=== PATIENT | male | born 1935 | race Caucasian/White ===

== ENCOUNTER 2018-01-11 18:05 | Inpatient (IN) ==
[2018-01-11] MEDS ORDERED: methylPREDNISolone 125 MG/2 ML VIAL IVP ONE (18:25)
[2018-01-11] MEDS ORDERED: Ipratropium/Albuterol Neb 3 ML IH ONE ×2 (18:25→18:57)
--- NOTE | 2018-01-11 18:30 | Emergency Department Note ---
Disposition Clinical Impression: Acute exacerbation of chronic obstructive airways disease Community acquired pneumonia Qualifiers: Laterality: unspecified laterality Qualified Code(s): J18.9 - Pneumonia, unspecified organism Disposition: Admitted As Inpatient Condition: Good Referrals: Prisca Perez CNP [Primary Care Provider] - Forms: ED Satisfaction Letter Time of Disposition: 19:57 SOB [facility] - General Chief Complaint: ED Shortness of Breath/Dyspnea Stated Complaint: VINCENZO Time Seen by Provider: 01/11/18 18:22 Source: patient Mode of arrival: ambulatory Limitations: no limitations Nursing Notes Reviewed: Yes Vital Signs Reviewed: Yes - History of Present Illness Patient presents to the ED with the chief complaint of cough and shortness of breath. Onset of the cough was about 4 days ago, but is getting worse. It is intermittently productive, but mainly sounding like rattling in his chest. No fevers or chills. No chest pain or tightness. He has been short of breath, much more so today than usual. No formally diagnosed history of COPD, but family states he does have known lung problems. He also has extensive " vascular disease." Has had stents and bypasses as well as carotid endarterectomies and stents. He is not having any headache, changes in vision or syncopal symptoms. He states he feels okay. Overall, just weak and tired from the cough - Related Data Previous Rx's Medication Instructions Recorded Naproxen [EC-Naprosyn] 375 mg PO DAILY 5 Days tablet. 08/23/16 cephALEXin [Keflex] 500 mg PO BID 7 Days capsule 08/23/16 Allergies Allergy/AdvReac Type Severity Reaction Status Date / Time No Known Allergies Allergy Verified 01/11/18 18:11 Review of Systems: As reviewed in the HPI. All other systems reviewed are negative or normal. Past Medical History - Past Medical History Attestation: Yes The following information was validated with the patient. Source: patient Medical history: Reports: coronary artery disease, diabetes, hypertension Psychiatric history: Reports: no psych history - Social History Smoking Status: Former smoker Smokeless Tobacco Status: No Alcohol use: Reports: none Drug use: Reports: none Physical Exam - General Limitations: no limitations General appearance: alert, in no apparent distress - Head Head exam: atraumatic, normocephalic, normal inspection - Eye Eye exam: Present: normal appearance, PERRL, EOMI - ENT ENT exam: normal exam, normal oropharynx, mucous membranes moist - Chest Chest inspection: Present: normal inspection, symmetric chest wall rise - Respiratory Respiratory exam: Present: wheezes (Course throughout, rhonchi right lower lobe) . Absent: normal lung sounds bilaterally, respiratory distress, accessory muscle use - Cardiovascular Cardiovascular exam: Present: regular rate, normal rhythm, systolic murmur. Absent: normal heart sounds - Abdominal Exam Abdominal exam: Present: soft, Non-Tender. Absent: tenderness, distention, guarding, rebound, rigidity - Extremities Exam Extremities exam: Present: normal inspection, full ROM. Absent: tenderness, pedal edema - Neurological Exam Neurological exam: Present: alert, oriented X3 - Psychiatric Psychiatric exam: Present: normal affect, normal mood - Skin Skin exam: Present: warm, dry, intact, normal color Course Course Narrative: Afebrile male presenting with pneumonia versus COPD exacerbation. Wheezes and rhonchi. Sepsis labs ordered as well as breathing treatments. Patient overall looks very well, was not in any acute distress at this time. - Reevaluation(s) Reevaluation #1: Chest x-ray shows bilateral pneumonia, worse in the left lung. He is feeling better after breathing treatments, but is still mildly hypoxic. We will admit to the hospital service for pneumonia and COPD exacerbation. Time: 19:55 Reevaluation #2: Accepted for admission by the hospitalist. Time: 20:38 Vital Signs Temperature 98.5 F 01/11/18 18:11 Pulse Rate 87 01/11/18 18:11 Respiratory Rate 20 01/11/18 18:11 Blood Pressure 116/68 01/11/18 18:11 O2 Sat by Pulse Oximetry 93 01/11/18 18:11 Temperature 98.5 F 01/11/18 18:11 Pulse Rate 100 01/11/18 20:21 Respiratory Rate 20 01/11/18 20:21 Blood Pressure 127/85 01/11/18 20:21 O2 Sat by Pulse Oximetry 100 01/11/18 20:21 Oxygen Delivery Oxygen Delivery Aerosol Mask Shortness of Breath/Dyspnea - Medical Records Medical records reviewed: Yes I reviewed the patient's medical records. - Lab Data Lab results reviewed: Yes I reviewed the patient's lab results. Result diagrams: 01/11/18 18:40 01/11/18 18:40 Lab Results 0401/11/18 01/11/18 Range/Units 18:40 18:40 18:40 WBC 12.6 H (4.3-11.1) K/mcL RBC 4.77 (4.19-5.50) M/mcL Hgb 14.1 (12.9-16.9) g/dL Hct 42.7 (37.5-50.1) % MCV 89.5 (83.0-100.0) fL MCH 29.6 (28.0-33.3) pg MCHC 33.0 (31.6-35.5) g/dL RDW 13.0 (11.5-14.5) % Plt Count 178 (140-400) K/mcL MPV 10.5 (9.4-12.4) fL Immature Gran % 0.7 (0-4) % Seg Neutrophils % 77.1 % Lymphocytes % 8.2 % Monocytes % 13.6 % Eosinophils % 0.2 % Basophils % 0.2 % Neutrophils # 9.7 H (1.6-8.9) K/mcL Lymphocytes # 1.0 (0.6-4.6) K/mcL Monocytes # 1.7 H (0.0-1.3) K/mcL Eosinophils # 0.0 (0.0-0.6) K/mcL Basophils # 0.0 (0.0-0.2) K/mcL Sodium 127 L (136-145) mEq/L Potassium 5.1 (3.5-5.1) mEq/L Chloride 95 L (98-107) mEq/L Carbon Dioxide 23 (23-29) mEq/L BUN 51 H (8-23) mg/dL Creatinine 2.26 H (0.70-1.30) mg/dL Est GFR ( Amer) 34 L (> 60) Est GFR (Non-Af Amer) 28 L (> 60) BUN/Creatinine Ratio 23 (6-26) Glucose 191 H (70-105) mg/dL Calculated Osmolality 283 (280-300) Lactic Acid 1.6 (0.5-2.2) mmol/L Calcium 8.6 (8.6-10.3) mg/dL Troponin I 0.03 (< 0.04) ng/mL B-Natriuretic Peptide (Less than 100) pg/mL 04/28/18 Range/Units 18:40 WBC (4.3-11.1) K/mcL RBC (4.19-5.50) M/mcL Hgb (12.9-16.9) g/dL Hct (37.5-50.1) % MCV (83.0-100.0) fL MCH (28.0-33.3) pg MCHC (31.6-35.5) g/dL RDW (11.5-14.5) % Plt Count (140-400) K/mcL MPV (9.4-12.4) fL Immature Gran % (0-4) % Seg Neutrophils % % Lymphocytes % % Monocytes % % Eosinophils % % Basophils % % Neutrophils # (1.6-8.9) K/mcL Lymphocytes # (0.6-4.6) K/mcL Monocytes # (0.0-1.3) K/mcL Eosinophils # (0.0-0.6) K/mcL Basophils # (0.0-0.2) K/mcL Sodium (136-145) mEq/L Potassium (3.5-5.1) mEq/L Chloride (98-107) mEq/L Carbon Dioxide (23-29) mEq/L BUN (8-23) mg/dL Creatinine (0.70-1.30) mg/dL Est GFR ( Amer) (> 60) Est GFR (Non-Af Amer) (> 60) BUN/Creatinine Ratio (6-26) Glucose (70-105) mg/dL Calculated Osmolality (280-300) Lactic Acid (0.5-2.2) mmol/L Calcium (8.6-10.3) mg/dL Troponin I (< 0.04) ng/mL B-Natriuretic Peptide 176 H (Less than 100) pg/mL - Radiology Data Radiology results reviewed: Yes I reviewed the patient's radiology results. - EKG Data EKG attestation: Yes I reviewed and interpreted this EKG. EKG results narrative: Sinus rhythm, rate 87, DIEGO 135, QRS 94, QTc 390, L axis deviation, non-specific inferior EKG changes but no acute ischemic changes
[2018-01-11 18:50] LABS: Basophils % 0.2 %; Eosinophils % 0.2 %; Hematocrit 42.7 % (37.5-50.1); Hemoglobin 14.1 g/dL (12.9-16.9); Immature Granulocytes % 0.7 % (0-4); Lymphocytes % 8.2 %; Mean Corpuscular Hemoglobin 29.6 pg (28.0-33.3); Mean Corpuscular Volume 89.5 fL (83.0-100.0); Mean Platelet Volume 10.5 fL (9.4-12.4); Monocytes # 1.7 K/mcL (0.0-1.3); Monocytes % 13.6 %; Neutrophils # 9.7 K/mcL (1.6-8.9); Platelet Count 178 K/mcL (140-400); Red Blood Count 4.77 M/mcL (4.19-5.50); Segmented Neutrophils % 77.1 %
[2018-01-11 19:12] LABS: Calcium 8.6 mg/dL (8.6-10.3); Potassium 5.1 mEq/L (3.5-5.1); Troponin I 0.03 ng/mL (< 0.04)
[2018-01-11] MEDS ORDERED: cefTRIAXone 1,000 MG in Water for inj. (sterile) 20 ML 10 ML IVP ONE (19:51)
[2018-01-11] MEDS ORDERED: Azithromycin 500 MG in D5% in Water 250 ML IVPB ONE (19:51)
[2018-01-11] MEDS ORDERED: Albuterol Neb 1.25 MG/3 ML VIAL IH ONE (19:57)
[2018-01-11] MEDS ORDERED: 0.9 % Sodium Chloride 1,000 ML IVC ONE ×2 (20:31)
--- NOTE | 2018-01-11 21:03 | Internal Med History&Physical ---
Date of Encounter: 01/11/18 Time of Encounter: 20:59 Internal Medicine - H&P: HPI Chief complaint: cough Admitted From: Emergency Dept Plans for Post Hospital Care: Home History of present illness: Mr. Hernandez is a 82 year old male with history of CAD ??stent in the 80s, DM, HTN , PVD, CKD III, who presents with a cough and shortness of breath for 4 days or so. Cough is productive at times. Subjective fevers. Been feeling weak progressively and today was his worst as family members could not get him up. On presentation to the ED, he was hemodynamically stable. Tachycardic at times. Work up showed leukocytosis. CXR with infiltrates. Given nebs, IV steroids, IVF , Zithromax/Rocephin in the ED and we were called to admit. Denies headache, blurry vision, chest pain, abdominal pain, nausea, vomiting, diarrhea, constipation, urinary symptoms, or neurological symptoms. Past Med Surg Social Fam HX - Past Medical History Medical history: coronary artery disease, diabetes, hypertension Psychiatric history: no psych history - Social History Smoking Status: Former smoker Smokeless Tobacco Status: No Alcohol use: none Drug use: none Internal Medicine - H&P: Meds Naproxen [EC-Naprosyn] 375 mg PO DAILY 5 Days tablet. 08/23/16 [Rx] cephALEXin [Keflex] 500 mg PO BID 7 Days capsule 08/23/16 [Rx] 3 Allergy/AdvReac Type Severity Reaction Status Date / Time No Known Allergies Allergy Verified 01/11/18 18:11 All Systems PM: A 10-system review of systems was performed and is negative for pertinent findings except as documented above in the HPI. Review of systems: All systems reviewed are negative except for as mentioned above - Constitutional Vitals: Temp Pulse Resp BP Pulse Ox 98.5 F 100 20 127/85 100 01/11/18 18:11 01/11/18 20:21 01/11/18 20:21 01/11/18 20:21 01/11/18 20:21 Exam: GEN: NAD HEENT: AT, NC, No cyanosis, oral mucosa is moist, No JVD Lymphatics: No lymphadenoapthy Eyes: Extrocular muscles intact, anicteric CVS:RRR. S1, S2, No m/r/g RESP: CTAB ABD: Soft, NT, ND, +BS EXT: No edema, No rashes, 2+ DP NEURO: Nonfocal, CN II-XII intact, No focal motor or sensory deficits Psych: Cooperative, Not anxious or depressed Internal Med - H&P Results - Labs CBC & Chem 7: 01/11/18 18:40 01/11/18 18:40 - Assessment and plan (1) Community acquired pneumonia Current Visit: Yes Status: Acute Assessment and plan: We will treat with Rocephin and Zithromax for community-acquired pneumonia. Check urine strep and Legionella. Check sputum culture. Blood cultures were not collected in the ED and the patient has received antibiotics. We will send for blood cultures if he spikes a fever. Nebs. IV fluids. Qualifiers: Laterality: unspecified laterality Qualified Code(s): J18.9 - Pneumonia, unspecified organism (2) Diabetes mellitus Current Visit: Yes Status: Acute Assessment and plan: Insulin sliding scale. Accu-Cheks. Qualifiers: Diabetes mellitus type: type 2 Diabetes mellitus care home insulin use: without clinical safety specialist use Diabetes mellitus complication status: with kidney complications Diabetes mellitus complication detail: with chronic kidney disease Chronic kidney disease stage: stage 3 (moderate) Qualified Code(s): E11.22 - Type 2 diabetes mellitus with diabetic chronic kidney disease; N18.3 - Chronic kidney disease, stage 3 (moderate); N18.3 - Chronic kidney disease, stage 3 (moderate) (3) CKD (chronic kidney disease) stage 3, GFR 30-59 ml/min Current Visit: Yes Status: Acute Assessment and plan: Stable around baseline. We will monitor. (4) DVT prophylaxis Current Visit: Yes Status: Acute Assessment and plan: Heparin subcutaneous - Time Spent With Patient Total time spent is greater than 50% in coordination of care (as documented) at patient's floor/unit and/or counseling patient:
[2018-01-11] MEDS ORDERED: Naloxone 0.4 MG/ML INJ IVP PRN (21:10)
[2018-01-11] MEDS ORDERED: Acetaminophen 325 MG TABLET PO PRN (21:10)
[2018-01-11] MEDS ORDERED: Dextrose Gel 15 GM/37.5 ML TUBE PO PRN ×2 (21:17)
[2018-01-11] MEDS ORDERED: *HR* Dextrose 50 % in Water (Syg) 50 ML SYRINGE IVP PRN (21:17)
[2018-01-11] MEDS ORDERED: D5% in Water 1,000 ML IVC PRN (21:17)
[2018-01-11] MEDS ORDERED: Heparin 25,000 UNIT/500 ML D5W 25,000 UNIT/500 ML BAG IVC SCH (21:45)
[2018-01-11] MEDS ORDERED: *HR* Heparin 5,000 UNIT/ML VIAL IVP ONE (21:45)
[2018-01-11] MEDS ORDERED: *HR* Heparin 5,000 UNIT/ML VIAL SQ SCH (22:00)
[2018-01-11] MEDS: Nitroglycerin 0.4 MG TAB.SUBL SL PRN ×3 (22:01→22:11)
--- NOTE | 2018-01-11 22:06 | Event Note ---
Date of Encounter: 01/12/18 Time of Encounter: 22:05 Patient started having chest pain prior to transfer to the floor and was tachycardic. The ED staff were aware of this and an EKG was ordered showing possible slight ST elevation in the inferior leads with ST depressions in lateral leads. Dr. Lawrence was made aware and asked for the patient to be started on heparin drip and to have serial EKGs. Later on the patient complained of jaw pain and an EKG showed worsening of ST depressions. Dr. Lawrence is in the construction laborer for a STEMI case currently and will likely take the patient for cath later tonight. Patient was re-evaluated by me and he stated no chest pain. Remains tachy in the 120s. Given ASA and nitro.
[2018-01-11 22:12] LABS: INR 1.4; Prothrombin Time 14.7 Seconds (9.4-12.1)
[2018-01-11 22:14] LABS: Activated Partial Thrombo Time 32.2 Seconds (26.0-36.0)
--- NOTE | 2018-01-11 22:59 | Emergency Department Note ---
Disposition Clinical Impression: Acute exacerbation of chronic obstructive airways disease Community acquired pneumonia Qualifiers: Laterality: unspecified laterality Qualified Code(s): J18.9 - Pneumonia, unspecified organism Disposition: Admitted As Inpatient Condition: Good General Adult HPI - General Chief complaint: ED Shortness of Breath/Dyspnea Stated complaint: VINCENZO Time Seen by Provider: 01/11/18 18:22 Source: patient Mode of arrival: ambulatory Limitations: no limitations - History of Present Illness Pain Scale: 2 - Related Data Previous Rx's Medication Instructions Recorded Naproxen [EC-Naprosyn] 375 mg PO DAILY 5 Days tablet. 08/23/16 cephALEXin [Keflex] 500 mg PO BID 7 Days capsule 08/23/16 Allergies Allergy/AdvReac Type Severity Reaction Status Date / Time No Known Allergies Allergy Verified 01/11/18 18:11 Past Medical History - Past Medical History Medical history: Reports: coronary artery disease, diabetes, hypertension Psychiatric history: Reports: no psych history - Social History Smoking Status: Former smoker Smokeless Tobacco Status: No Alcohol use: Reports: none Drug use: Reports: none Physical Exam - General Limitations: no limitations General appearance: alert, in no apparent distress Course Vital Signs Temperature 98.5 F 01/11/18 18:11 Pulse Rate 87 01/11/18 18:11 Respiratory Rate 20 01/11/18 18:11 Blood Pressure 116/68 01/11/18 18:11 O2 Sat by Pulse Oximetry 93 01/11/18 18:11 Temperature 98.5 F 01/11/18 18:11 Pulse Rate 109 01/11/18 22:43 Respiratory Rate 20 01/11/18 22:43 Blood Pressure 90/50 01/11/18 22:43 O2 Sat by Pulse Oximetry 98 01/11/18 22:43 Oxygen Delivery Oxygen Delivery Nasal Cannula Medical Decision Making - Lab Data Result diagrams: 01/11/18 18:40 01/11/18 18:40 Lab Results 01/11/18 01/11/18 01/11/18 Range/Units 18:40 18:40 18:40 WBC 12.6 H (4.3-11.1) K/mcL RBC 4.77 (4.19-5.50) M/mcL Hgb 14.1 (12.9-16.9) g/dL Hct 42.7 (37.5-50.1) % MCV 89.5 (83.0-100.0) fL MCH 29.6 (28.0-33.3) pg MCHC 33.0 (31.6-35.5) g/dL RDW 13.0 (11.5-14.5) % Plt Count 178 (140-400) K/mcL MPV 10.5 (9.4-12.4) fL Immature Gran % 0.7 (0-4) % Seg Neutrophils % 77.1 % Lymphocytes % 8.2 % Monocytes % 13.6 % Eosinophils % 0.2 % Basophils % 0.2 % Neutrophils # 9.7 H (1.6-8.9) K/mcL Lymphocytes # 1.0 (0.6-4.6) K/mcL Monocytes # 1.7 H (0.0-1.3) K/mcL Eosinophils # 0.0 (0.0-0.6) K/mcL Basophils # 0.0 (0.0-0.2) K/mcL Sodium 127 L (136-145) mEq/L Potassium 5.1 (3.5-5.1) mEq/L Chloride 95 L (98-107) mEq/L Carbon Dioxide 23 (23-29) mEq/L BUN 51 H (8-23) mg/dL Creatinine 2.26 H (0.70-1.30) mg/dL Est GFR ( Amer) 34 L (> 60) Est GFR (Non-Af Amer) 28 L (> 60) BUN/Creatinine Ratio 23 (6-26) Glucose 191 H (70-105) mg/dL Calculated Osmolality 283 (280-300) Lactic Acid 1.6 (0.5-2.2) mmol/L Calcium 8.6 (8.6-10.3) mg/dL Troponin I 0.03 (< 0.04) ng/mL B-Natriuretic Peptide (Less than 100) pg/mL 01/11/18 Range/Units 18:40 WBC (4.3-11.1) K/mcL RBC (4.19-5.50) M/mcL Hgb (12.9-16.9) g/dL Hct (37.5-50.1) % MCV (83.0-100.0) fL MCH (28.0-33.3) pg MCHC (31.6-35.5) g/dL RDW (11.5-14.5) % Plt Count (140-400) K/mcL MPV (9.4-12.4) fL Immature Gran % (0-4) % Seg Neutrophils % % Lymphocytes % % Monocytes % % Eosinophils % % Basophils % % Neutrophils # (1.6-8.9) K/mcL Lymphocytes # (0.6-4.6) K/mcL Monocytes # (0.0-1.3) K/mcL Eosinophils # (0.0-0.6) K/mcL Basophils # (0.0-0.2) K/mcL Sodium (136-145) mEq/L Potassium (3.5-5.1) mEq/L Chloride (98-107) mEq/L Carbon Dioxide (23-29) mEq/L BUN (8-23) mg/dL Creatinine (0.70-1.30) mg/dL Est GFR ( Amer) (> 60) Est GFR (Non-Af Amer) (> 60) BUN/Creatinine Ratio (6-26) Glucose (70-105) mg/dL Calculated Osmolality (280-300) Lactic Acid (0.5-2.2) mmol/L Calcium (8.6-10.3) mg/dL Troponin I (< 0.04) ng/mL B-Natriuretic Peptide 176 H (Less than 100) pg/mL
[2018-01-11] MEDS ORDERED: *HR* Ticagrelor 90 MG TABLET PO ONE (23:04)
[2018-01-11] MEDS ORDERED: Heparin 1,000 UNITS/500 mL 500 ML ONE (23:07)
[2018-01-11] MEDS ORDERED: Nitroglycerin 1,000 MCG/10 ML VIAL IV ONE (23:07)
[2018-01-11] MEDS ORDERED: ISOVUE-370 200 ML INFUS..BTL IV ONE (23:07)
[2018-01-11] MEDS ORDERED: *HR* Heparin 10,000 UNIT/10 ML VIAL ONE (23:07)
[2018-01-11] MEDS ORDERED: 0.9 % Sodium Chloride 1,000 ML ONE ×2 (23:07→23:33)
[2018-01-11] MEDS ORDERED: *HR* Ticagrelor 90 MG TABLET ONE (23:08)
[2018-01-11] MEDS: Ipratropium/Albuterol Neb 3 ML IH SCH (23:10)
[2018-01-11] MEDS ORDERED: Aspirin 325 MG TABLET PO ONE (23:13)
[2018-01-11] MEDS ORDERED: Aspirin 81 MG TAB.CHEW ONE (23:27)
[2018-01-11] MEDS ORDERED: *HR* Midazolam HCl 5 MG/5 ML VIAL IVP ONE (23:33)
[2018-01-11] MEDS ORDERED: *HR* FentaNYL (PF) 250 MCG/5 ML VIAL ONE (23:33)
--- NOTE | 2018-01-11 23:54 | Emergency Department Note ---
Disposition Clinical Impression: Acute exacerbation of chronic obstructive airways disease Community acquired pneumonia Qualifiers: Laterality: unspecified laterality Qualified Code(s): J18.9 - Pneumonia, unspecified organism Disposition: Admitted As Inpatient Condition: Good General Adult HPI - General Chief complaint: ED Shortness of Breath/Dyspnea Stated complaint: VINCENZO Time Seen by Provider: 01/11/18 18:22 Source: patient Mode of arrival: ambulatory Limitations: no limitations - History of Present Illness Pain Scale: 4 - Related Data Previous Rx's Medication Instructions Recorded Naproxen [EC-Naprosyn] 375 mg PO DAILY 5 Days tablet. 08/23/16 cephALEXin [Keflex] 500 mg PO BID 7 Days capsule 08/23/16 Allergies Allergy/AdvReac Type Severity Reaction Status Date / Time No Known Allergies Allergy Verified 01/11/18 18:11 Past Medical History - Past Medical History Medical history: Reports: coronary artery disease, diabetes, hypertension Psychiatric history: Reports: no psych history - Social History Smoking Status: Former smoker Smokeless Tobacco Status: No Alcohol use: Reports: none Drug use: Reports: none Physical Exam - General Limitations: no limitations General appearance: alert, in no apparent distress Course Vital Signs Temperature 98.5 F 01/11/18 18:11 Pulse Rate 87 01/11/18 18:11 Respiratory Rate 20 01/11/18 18:11 Blood Pressure 116/68 01/11/18 18:11 O2 Sat by Pulse Oximetry 93 01/11/18 18:11 Temperature 98.5 F 01/11/18 18:11 Pulse Rate 113 01/11/18 23:03 Respiratory Rate 20 01/11/18 23:35 Blood Pressure 106/68 01/11/18 23:35 O2 Sat by Pulse Oximetry 96 01/11/18 23:03 Oxygen Delivery Oxygen Delivery Nasal Cannula Medical Decision Making - Lab Data Result diagrams: 01/11/18 18:40 01/11/18 18:40 Lab Results 01/11/18 01/11/18 01/11/18 Range/Units 18:40 18:40 18:40 WBC 12.6 H (4.3-11.1) K/mcL RBC 4.77 (4.19-5.50) M/mcL Hgb 14.1 (12.9-16.9) g/dL Hct 42.7 (37.5-50.1) % MCV 89.5 (83.0-100.0) fL MCH 29.6 (28.0-33.3) pg MCHC 33.0 (31.6-35.5) g/dL RDW 13.0 (11.5-14.5) % Plt Count 178 (140-400) K/mcL MPV 10.5 (9.4-12.4) fL Immature Gran % 0.7 (0-4) % Seg Neutrophils % 77.1 % Lymphocytes % 8.2 % Monocytes % 13.6 % Eosinophils % 0.2 % Basophils % 0.2 % Neutrophils # 9.7 H (1.6-8.9) K/mcL Lymphocytes # 1.0 (0.6-4.6) K/mcL Monocytes # 1.7 H (0.0-1.3) K/mcL Eosinophils # 0.0 (0.0-0.6) K/mcL Basophils # 0.0 (0.0-0.2) K/mcL Sodium 127 L (136-145) mEq/L Potassium 5.1 (3.5-5.1) mEq/L Chloride 95 L (98-107) mEq/L Carbon Dioxide 23 (23-29) mEq/L BUN 51 H (8-23) mg/dL Creatinine 2.26 H (0.70-1.30) mg/dL Est GFR ( Amer) 34 L (> 60) Est GFR (Non-Af Amer) 28 L (> 60) BUN/Creatinine Ratio 23 (6-26) Glucose 191 H (70-105) mg/dL Calculated Osmolality 283 (280-300) Lactic Acid 1.6 (0.5-2.2) mmol/L Calcium 8.6 (8.6-10.3) mg/dL Troponin I 0.03 (< 0.04) ng/mL B-Natriuretic Peptide (Less than 100) pg/mL 01/11/18 Range/Units 18:40 WBC (4.3-11.1) K/mcL RBC (4.19-5.50) M/mcL Hgb (12.9-16.9) g/dL Hct (37.5-50.1) % MCV (83.0-100.0) fL MCH (28.0-33.3) pg MCHC (31.6-35.5) g/dL RDW (11.5-14.5) % Plt Count (140-400) K/mcL MPV (9.4-12.4) fL Immature Gran % (0-4) % Seg Neutrophils % % Lymphocytes % % Monocytes % % Eosinophils % % Basophils % % Neutrophils # (1.6-8.9) K/mcL Lymphocytes # (0.6-4.6) K/mcL Monocytes # (0.0-1.3) K/mcL Eosinophils # (0.0-0.6) K/mcL Basophils # (0.0-0.2) K/mcL Sodium (136-145) mEq/L Potassium (3.5-5.1) mEq/L Chloride (98-107) mEq/L Carbon Dioxide (23-29) mEq/L BUN (8-23) mg/dL Creatinine (0.70-1.30) mg/dL Est GFR ( Amer) (> 60) Est GFR (Non-Af Amer) (> 60) BUN/Creatinine Ratio (6-26) Glucose (70-105) mg/dL Calculated Osmolality (280-300) Lactic Acid (0.5-2.2) mmol/L Calcium (8.6-10.3) mg/dL Troponin I (< 0.04) ng/mL B-Natriuretic Peptide 176 H (Less than 100) pg/mL Attestation Statement - Attestation Attestation: I examined this patient and my medical decision-making was reviewed with the Resident Physician. I agree with the documented findings, disposition and treatment plan as described except to the extent set forth below. Pt presentation initially seemed primarily respiratory, SOB with wheezing/ rhonchi, h/o COPD, CXR suggestive of pneumonia. Treated w nebulizers, antibiotics. Developed chest pressure, EKG repeated, tachycardic with some ST depressions laterally and borderline LANDY in inferior leads with associated inferior Qs. Qs present on prior EKG, ST changes not present previously. Given borderline EKG findings not meeting STEMI criteria but concerning, cardiology was consulted, and Dr. Lawrence viewed EKGs. She agreed findings were concerning, opted for Nitro trial, anticoagulation (no sx of GIB or other abnormal bleeding) , serial EKGs and reassessment. BP dropped with NTG, quickly responded to Trendelenburg, IVF. Serial EKGs demonstrated dynamic EKG changes, still not meeting STEMI criteria but with persistent pain and dynamic EKG changes, Dr. Lawrence agreed that emergent cath was warranted. Pt was brought to [facility]. Critical care time: I was directly and primarily involved in the care of this patient for 35 minutes excluding procedures.
[2018-01-12] MEDS ORDERED: ISOVUE-370 200 ML INFUS..BTL IV ONE (00:02)
[2018-01-12] MEDS ORDERED: Verapamil 5 MG/2 ML VIAL ONE (00:03)
[2018-01-12] MEDS ORDERED: Aspirin 325 MG TABLET ONE (00:37)
[2018-01-12] MEDS ORDERED: 0.9 % Sodium Chloride 1,000 ML IVC SCH (01:00)
--- NOTE | 2018-01-12 01:08 | Invasive Diagnostic Lab Proc ---
Name: Kee Hernandez Date of Study: 01/11/2018 Date: 1935 Ht: 70.1in Medical Record#: [id number] Age: 82 Wt: 138.89lb Gender: Male BSA: 1.79 Order #: [id number] BMI: 19.88 Physicians Procedure Physician: Anh Lawrence MD, [facility] Referring MD: Referring MD: Staff Name Position Time In Zahira, David RN Monitor 11:33 PM Gerber Perez RN Drive In Teller 11:33 PM Elijah Jacques RT (R) Scrub 11:33 PM Indications Indication STEMI Procedures Performed Procedure CORONARY ART/GRFT ANGIO S&I Pre-Procedure Checklist Informed consent is complete signed and on chart. H&P is on chart. ID band is on and ID verified with patient. Patient NPO for procedure The procedure was described for the patient and questions were answered. Blood Pressure: 105/54 ECG is on chart. Rhythm: Sinus Tachycardia Plan of Care Patient will tolerate the procedure without complications. Adequate level of comfort will be maintained. Hemodynamics will remain stable Patient will recover from procedure without complications. Respiratory function will be maintained. Cardiac rhythm will remain stable. Patient temperature will be maintained. Patient and/or family have verbalized understanding of the procedure. Patient Education Intravenous Access Time IV Size Location DC'd Fluid/Drip Rate Units RN 18g 1 1/4" Patent On Arrival Lt Gerber Mueller RN 18g 1 1/4" Patent On Arrival Rt Gerber Mueller RN Allergies No Known Allergies Vital Signs Time BP (mmHg) HR (bpm) O2 Sat. RR (bpm) LOC 11:35 PM / % 5 = Fully awake and oriented or at pre-proc level 11:35 PM / % 4 = Oriented but drowsy 11:34 PM 105 / 54 113 95 % 11:39 PM 105 / 64 115 100 % 11:44 PM 107 / 54 113 98 % 11:49 PM 97 / 52 109 99 % 11:54 PM 101 / 55 108 100 % 11:59 PM 104 / 51 107 100 % 12:04 AM 106 / 59 106 99 % 12:09 AM 106 / 55 105 98 % 12:14 AM 81 / 42 105 96 % 12:17 AM 95 / 48 108 95 % 12:23 AM 89 / 56 105 96 % 12:27 AM 103 / 48 107 96 % Procedural Medications Time Medication Dose Units Method Given By 11:35 PM Oxygen 5 L/min nasal cannula Gerber Perez RN 11:39 PM Lidocaine 2% 12 ml Subcutaneous Anh Lawrence MD, [facility] 12:11 AM Lidocaine 2% 1.5 ml Subcutaneous Anh Lawrence MD, [facility] 12:12 AM Nitroglycerin 200 mcg Verapamil 2.5 mg Intraarterial Anh Lawrence MD, [facility] 12:37 AM Aspirin (325mg) 325 mg Orally Gerber Perez RN ASA Classification: Emergent Procedure: ASA score is assumed Shane Score Preprocedure Postprocedure Activity 2- Moves 4 extremities sustained head lift Activity 2- Moves 4 extremities sustained head lift Circulation 2- SBP +/= 20 points of pre-anesthetic level Circulation 2- SBP +/= 20 points of pre-anesthetic level Consciousness 2- Awake and alert oriented x 3 Consciousness 2- Awake and alert oriented x 3 O2 Saturation 2- Able to maintain O2 satruation of 92% on room air O2 Saturation 2- Able to maintain O2 satruation of 92% on room air Respiratory 2- Able to deep breathe and cough well Respiratory 2- Able to deep breathe and cough well Total Score 10 Total Score 10 Contrast Agent: Isovue Diagnostic Contrast: 123 ml Total Contrast: 123 ml Fluoro Dose: 406 mGy Procedure Log Time Note Enter By 11:30 PM CathStat 11:30 PM Case Start 11:30 PM Vitals capture started with the following parameters, Patient=Adult, Interval=5 min, Initial Tmsgrjen=537 mmHg, Deflation Rate=5 mmHg, Cuff placed on Right Arm 11:33 PM Pt arrived to chemical laboratory scientist 2 at 23:33 [email or web address] 11:33 PM David Rodriges RN Position: Monitor Time in: 23:33 [email or web address] 11:33 PM Gerber Perez RN Position: Drive In Teller Time in: 23:33 [email or web address] 11:33 PM Elijah Jacques RT (R) Position: Scrub Time in: 23:33 [email or web address] 11:33 PM Patient charges- Angio tray pack, Navilyst 3mm J, Pulse Oximetry and ACIST tubing and transducer [email or web address] 11:33 PM Vitals capture started with the following parameters, Patient=Adult, Interval=5 min, Initial Yincvquy=572 mmHg, Deflation Rate=5 mmHg, Cuff placed on Right Arm 11:34 PM Cj removed from procedure site in procedure lab using clippers. Bilateral groin prepped with Chloraprep by Elijah Jacques (R), then patient was draped. Skin intact. [email or web address] 11:34 PM Physician arrived 23:34 [email or web address] 11:34 PM Meet and lele completed [email or web address] 11:34 PM Sign in performed according to hospital policy. [email or web address] 11:34 PM Procedure start 23:34 [email or web address] 11:34 PM TR=110 bpm, VJCI=930/54 mmhg, SpO2=95.0 % 11:35 PM Time: 23:35 Oxygen on at 5 L/min per nasal cannula by Gerber Perez RN 3 11:35 PM Time: 23:35LOC: 5 = Fully awake and oriented or at pre-proc level [email or web address] 11:35 PM Time: 23:35 Patient comfortable and pain free: Yes [email or web address] 11:36 PM Clinical Presentation: STEMI or equivalent [email or web address] 11:37 PM Pressure channel 1 zeroed. 11:39 PM DH=437 bpm, REST=235/64 mmhg, ZsY0=614.0 %, Comment=st 11:39 PM Time out performed according to hospital policy [email or web address] 11:40 PM Time: 23:39 12 ml Lidocaine 2% to right groin Subcutaneous Given by Anh Lawrence MD, [facility] [email or web address] 11:40 PM Access obtained by percutaneous puncture. 6Fr 10cm Terumo [place] sheath placed in right Femoral artery. [id number] [email or web address] 11:42 PM Wire removed 11:42 PM 0.035 145cm VSI Power-Torque wire [id number] 3 11:43 PM 5Fr FL 4 catheter inserted over the wire DN 11:44 PM AQ=288 bpm, VMTA=415/54 mmhg, SpO2=98.0 %, Comment=st 11:45 PM LCA angiography performed in multiple views. 3 11:46 PM Catheter removed 11:46 PM 5Fr FR 4 catheter inserted over the wire DN 3 11:47 PM SVG to the RPDA angio performed in multiple views. [email or web address] 11:48 PM SVG to the Ramus angio performed in multiple views. [email or web address] 11:49 PM UB=239 bpm, NIBP=97/52 mmhg, SpO2=99.0 %, Comment=st 11:50 PM Time: 23:35LOC: 4 = Oriented but drowsy [email or web address] 11:51 PM Time: 23:35 Patient comfortable and pain free: Yes [email or web address] PM RCA angiography performed in multiple views. [email or web address] 11:51 PM NO LV GRAM D/T CREAT. LEVEL [email or web address] 11:52 PM Catheter removed [email or web address] 11:54 PM GV=517 bpm, HGDD=379/55 mmhg, QxI2=338.0 %, Comment=st 11:54 PM 5Fr IM catheter inserted over the wire [id number] [email or web address] 11:59 PM VD=484 bpm, ZYAM=261/51 mmhg, HlZ2=993.0 %, Comment=st 12:00 AM Catheter removed [email or web address] 12:00 AM Wire removed [email or web address] 12:02 AM Groin shot obtained. [email or web address] 12:02 AM Prepping patient for radial access. [email or web address] 12:04 AM IS=923 bpm, BGBG=836/59 mmhg, SpO2=99.0 %, Comment=st 12:09 AM PE=755 bpm, FTDU=469/55 mmhg, SpO2=98.0 %, Comment=st 12:11 AM Time: 00:11 1.5 ml Lidocaine 2% to left radial Subcutaneous Given by Anh Lawrence MD, FACC [email or web address] 12:12 AM Access obtained by percutaneous puncture. 5Fr 11cm Terumo Glidesheath sheath placed in left Radial artery. [id number] [email or web address] 12:12 AM Time: 00:12 Patient given , 200 mcg Nitroglycerin, and 2.5 mg Verapamil Intraarterial by Anh Lawrence MD, FACC. This is given to reduce risk of vessel spasm and thrombosis. [email or web address] 12:14 AM TH=355 bpm, NIBP=81/42 mmhg, SpO2=96.0 %, Comment=st 12:15 AM 5Fr IM catheter inserted over the wire [id number] [email or web address] 12:16 AM Left MICHELLE to the LAD angio performed in multiple views. [email or web address] 12:16 AM Vitals capture stopped. 12:17 AM [ Start or Stop Vital ] 12:17 AM Vitals capture started with the following parameters, Patient=Adult, Interval=5 min, Initial Rwcoseoi=989 mmHg, Deflation Rate=5 mmHg, Cuff placed on Right Arm 12:17 AM JU=579 bpm, NIBP=95/48 mmhg, SpO2=95.0 %, Comment=st 12:19 AM Pressure channel 1 zeroed. 12:19 AM Recorded Pressure: Ao, LS=174, Condition=Condition 1 (Aorta) Ao 98/43/67 12:19 AM Recorded Pressure: Ao, LSCA, FH=748, Condition=Condition 1 (Aorta) Ao 101/47/70, (Left Subclavian Artery) LSCA 88/42/63 12:21 AM [facility]clavian shot [facility]. [facility] 12:21 AM Pressures obtained in subclavian and pull back. [email or web address] 12:23 AM RK=810 bpm, NIBP=89/56 mmhg, SpO2=96.0 %, Comment=st 12:24 AM [email or web address] 12:[facility] AM Wire removed [facility] 12:24 AM Procedure completed at 00:24 [facility] 12:24 AM Did you address KEE flow and Dominance? Yes allan 12:26 AM Sign out completed: Radiation Dose 406 mGy Fluoro Time: 14.2 Isovue 370 - 200ml contrast 123 ml given by Anh Lawrence MD, [facility]. Complications: NoneCardiac Rehab Consult needed: NoConfirmed administered medications: Yes [email or web address] 12:26 AM Isovue 370 - 200ml,1 Bottle(s) used. [email or web address] 12:27 AM ES=866 bpm, TZDW=093/48 mmhg, SpO2=96.0 %, Comment=st 12:28 AM 10 ml air in Vasc Band. [email or web address] 12:28 AM Arterial sheath pulled, Mynx closure device used and was Successful [id number] S/N. [email or web address] 12:33 AM Coronary Dominance: right [email or web address] 12:37 AM Time: 00:37 Aspirin (325mg) 325 mg Orally Given by [email or web address] 12:44 AM Estimated Blood Loss: less than 20cc [email or web address] 12:44 AM Post Blood Pressure 103/48 [email or web address] 12:45 AM 00:45 Post Pulses Bilateral DP & PT 1+ [email or web address] 12:45 AM Information taught Cardiac Cath, Mynx, and Vasc Band [email or web address] 12:45 AM Education needs Procedure, Plan of Care, and Responsibilities of Patient in Care [email or web address] 12:45 AM Learning barriers :None [email or web address] 12:46 AM Education Methods Verbal [email or web address] 12:46 AM Education evaluation Able to repeat information [email or web address] 12:46 AM Site status No bleeding/hematoma - Rt Groin as reported by Elijah Jacques RT (R) at 00:46 [email or web address] 12:46 AM Opsite applied [email or web address] 12:46 AM Site status No bleeding/hematoma - Lt Wrist as reported by Elijah Jacques RT (R) at 00:46 [email or web address] 12:46 AM Report given to Mercedez EWING Pt taken to 2A Room #26. 00:46 [email or web address] 12:46 AM Plavix, Effient or Brilinta given Yes [email or web address] 12:46 AM Patient out of room: 00:46 [email or web address] 12:46 AM Family placed in consult room. [email or web address] 12:46 AM Complications: None [email or web address] 12:46 AM Fluoro Time: 14.2 [email or web address] 12:47 AM Isovue 370 - 200ml contrast 123 ml given by Anh Lawrence. [email or web address] 12:47 AM Radiation Dose 406 mGy [email or web address] 12:47 AM Lesion found in Proximal RCA. Pre Stenosis: 100 Pre KEE Flow: [email or web address] 12:47 AM Lesion found in LMCA. Pre Stenosis: 90 Pre KEE Flow: [email or web address] 12:47 AM Lesion found in Proximal LAD. Pre Stenosis: 100 Pre KEE Flow: [email or web address] 12:48 AM Lesion found in Proximal Circumflex. Pre Stenosis: 99 Pre KEE Flow: [email or web address] 12:48 AM Lesion found in Mid Circumflex. Pre Stenosis: 100 Pre KEE Flow: [email or web address] 12:48 AM Lesion found in RPL. Pre Stenosis: 99 Pre KEE Flow: [email or web address] 12:48 AM Lesion found in Ramus. Pre Stenosis: 100 Pre KEE Flow: [email or web address] 12:50 AM Left Main Coronary Artery with 90% stenosis [email or web address] 12:50 AM Proximal Left Anterior Descending Coronary Artery with 100% stenosis. If graft is supplying this territory, 0 % stenosis. [email or web address] 12:50 AM Circumflex, Obtuse Marginal, Left Posterior Descending, and Left Posterolateral Coronary Arteries with 100 % stenosis. If graft is supplying this area, 0 % stenosis [email or web address] 12:50 AM Right Coronary, Right Posterior Descending Arteries with Right Posterolateral and Acute Marginal branches with 100 % stenosis. If graft is supplying this area, 0 % stenosis [email or web address] 12:51 AM Ramus with 100% stenosis. If graft is supplying this area, 0 % stenosis [email or web address] Complications Complication None None Hemodynamics Pressures Site Systolic/A Wave Diastolic/V Wave Mean AO 98 43 67 AO 101 47 70 LSCA 88 42 63 Post Procedure Information Blood Pressure: 103/48 mmHg Post procedural instructions were given Closure Device Time Device Success/Fail 01/12/2018 12:51:00 AM MynxGrip Successful Site Checks Time Location Status Staff Sheath In? Note 12:46 AM Rt Groin No bleeding/hematoma Elijah Jacques RT (R) 12:46 AM Lt Wrist No bleeding/hematoma Elijah Jacques RT (R) Pulses Time Site Pre-Procedure Post-Procedure Note 12:45:00 AM Bilateral DP & PT 1+ Updated by David Rodriges RN on 01/12/2018 1:01:30 AM electronically signed on 01/12/2018 1:02:36 AM with status of Final
[2018-01-12] MEDS: Ipratropium/Albuterol Neb 3 ML IH SCH ×4 (04:13→21:51)
[2018-01-12] MEDS: *HR* Heparin 5,000 UNIT/ML VIAL SQ SCH ×3 (05:51→23:25)
[2018-01-12 05:58] LABS: Basophils % 0.1 %; Hematocrit 39.1 % (37.5-50.1); Hemoglobin 12.6 g/dL (12.9-16.9); Immature Granulocytes % 0.8 % (0-4); Lymphocytes # 0.3 K/mcL (0.6-4.6); Mean Corpuscular HGB Conc 32.2 g/dL (31.6-35.5); Mean Corpuscular Hemoglobin 29.5 pg (28.0-33.3); Mean Corpuscular Volume 91.6 fL (83.0-100.0); Mean Platelet Volume 10.8 fL (9.4-12.4); Monocytes # 0.7 K/mcL (0.0-1.3); Monocytes % 5.1 %; Neutrophils # 12.9 K/mcL (1.6-8.9); Platelet Count 160 K/mcL (140-400); Red Blood Count 4.27 M/mcL (4.19-5.50); Red Cell Distribution Width 13.2 % (11.5-14.5)
[2018-01-12 06:15] LABS: Calcium 7.5 mg/dL (8.6-10.3); Magnesium 1.4 mg/dL (1.6-2.6)
[2018-01-12] MEDS: 0.9 % Sodium Chloride 1,000 ML IVC SCH ×2 (07:07→07:52)
[2018-01-12] MEDS: Insulin LISPRO 300 UNITS/3 ML VIAL SQ SCH ×4 (08:12→18:13)
--- NOTE | 2018-01-12 09:14 | Cardiology Consult Note ---
Date of Encounter: 01/11/18 Time of Encounter: 22:30 Assessment and Plan (1) ACS (acute coronary syndrome) Current Visit: Yes Status: Acute Pt symptoms of ongoing chest pain, dyspnea, and jaw pain with EKG changes concerning for ACS. Symptoms refractory to medical trial. Will proceed with emergent LHC and possible PCI. Family informed/aware. Further recommendations pending results. (2) Dyspnea Current Visit: Yes Status: Acute Possible anginal equivalent as well as due to COPD exacerbation. Qualifiers: Dyspnea type: shortness of breath Qualified Code(s): R06.02 - Shortness of breath; R06.00 - Dyspnea, unspecified; R06.01 - Orthopnea (3) Coronary artery disease Current Visit: Yes Status: Chronic Qualifiers: Coronary Disease-Associated Artery/Lesion type: [place] artery [place] vs. transplanted heart: [place] heart Associated angina: with unstable angina Qualified Code(s): I25.110 - Atherosclerotic heart disease of [place] coronary artery with unstable angina pectoris (4) S/P CABG (coronary artery bypass graft) Current Visit: No Status: Chronic (5) Acute exacerbation of chronic obstructive airways disease Current Visit: Yes Status: Acute Per primary service. (6) CKD (chronic kidney disease) stage 3, GFR 30-59 ml/min Current Visit: No Status: Chronic Discussion w patient/family: The assessment and plan as outlined above was discussed with the patient and/or family members who expressed understanding and agreement. All questions were answered. Thank you for involving us in the care of your patient. Please call with any questions. History of Present Illness Consult date: 01/11/18 Requesting physician: Casa Shipley Consult reason: STEMI Chief complaint: SOB History of present illness: Mr. Hernandez is a 82 year old male with CAD s/p CABG, HTN, PVD, CRI, dementia presents to [facility] ED with c/o dyspnea, cough. While in ED, pt c/o CP and jaw pain. EKG demonstrated inferior ST elevation with ST depression in precordial leads concerning for possible inferior/posterior STEMI. Has known history of remote CABG as well as PVD. Pt poor historian. Past Med Surg Social Fam HX - Past Medical History Source: old records reviewed, obtained from family Medical history: COPD, coronary artery disease, diabetes, hypertension, peripheral artery disease, renal disease Psychiatric history: no psych history - Past Surgical History Surgical History: coronary bypass (CABG) - Social History Smoking Status: Former smoker Smokeless Tobacco Status: No Alcohol use: none Drug use: none Medications and Allergies Naproxen [EC-Naprosyn] 375 mg PO DAILY 5 Days tablet. 08/23/16 [Rx] cephALEXin [Keflex] 500 mg PO BID 7 Days capsule 08/23/16 [Rx] 3 Allergy/AdvReac Type Severity Reaction Status Date / Time No Known Allergies Allergy Verified 01/11/18 18:11 All Systems Review: The remainder of the systems were reviewed and are negative - Cardiovascular Cardiovascular: as per HPI Physical Examination Vital Signs, Last 4 Hours Temp Pulse Resp BP Pulse Ox 01/12/18 07:45 98.7 F 89 18 115/69 96 01/12/18 05:14 97.2 F L 94 20 110/68 93 General: Conversant, No Apparent Distress HEENT: Atraumatic, Normocephaly, Mucus Membranes Moist Neck: No JVD, Normal carotid pulses Cardiac: Reg Rate and Rhythm, Normal S1 and S2, No Murmur Lungs: Other (audible wheezing b/l) Neuro: Alert and responsive, No focal deficits noted, Other (oriented to person , place, year 2018) Abdomen: Soft, Non-Tender Skin: No rashes noted on visualized skin Musculoskeletal: No Chest Wall Tenderness Extremities: No Clubbing, No Cyanosis, No Edema, Normal Pulses Results 01/12/18 05:10 01/12/18 05:10 Lab Results 01/11/18 01/11/18 01/12/18 21:55 22:57 05:10 WBC 14.1 H Hgb 12.6 L D Hct 39.1 Plt Count 160 INR 1.4 APTT 32.2 Sodium Potassium Chloride Carbon Dioxide BUN Creatinine Glucose Calcium Magnesium Troponin I 0.03 01/12/18 01/12/18 05:10 05:10 WBC Hgb Hct Plt Count INR APTT Sodium 129 L Potassium 5.0 Chloride 98 Carbon Dioxide 13 L BUN 51 H Creatinine 2.15 H Glucose 456 H Calcium 7.5 L Magnesium 1.4 L Troponin I 0.30 H* - EKG Interpretation EKG results cardiology: personally reviewed (sinus tachycardia with possible inferior/posterior STEMI) Consult Discharge Plan - Plan Referrals: Prisca Perez, BORING MACHINE OPERATOR HORIZONTAL [Primary Care Provider] -
--- NOTE | 2018-01-12 09:53 | Cardiology Progress Note ---
Date of Encounter: 01/12/18 Time of Encounter: 09:30 Assessment and Plan (1) ACS (acute coronary syndrome) Current Visit: Yes Status: Acute Cardiac catheterization last evening demonstrates severe [place] 3VCAD with 3/4 grafts patent. No intervention. Recommend continued aggressive medical therapy. Family declines echocardiogram and further cardiac testing. Will sign off. Call if needed. (2) Dyspnea Current Visit: Yes Status: Acute Qualifiers: Dyspnea type: shortness of breath Qualified Code(s): R06.02 - Shortness of breath; R06.00 - Dyspnea, unspecified; R06.01 - Orthopnea (3) Coronary artery disease Current Visit: Yes Status: Chronic Qualifiers: Coronary Disease-Associated Artery/Lesion type: [place] artery [place] vs. transplanted heart: [place] heart Associated angina: with unstable angina Qualified Code(s): I25.110 - Atherosclerotic heart disease of [place] coronary artery with unstable angina pectoris (4) S/P CABG (coronary artery bypass graft) Current Visit: No Status: Chronic (5) Acute exacerbation of chronic obstructive airways disease Current Visit: Yes Status: Acute Per primary service. (6) CKD (chronic kidney disease) stage 3, GFR 30-59 ml/min Current Visit: No Status: Chronic Discussion w patient/family: The assessment and plan as outlined above was discussed with the patient and/or family members who expressed understanding and agreement. All questions were answered. Thank you for involving us in the care of your patient. Please call with any questions. Subjective Interval history: Pt lying comfortably in bed this AM. No CP/jaw pain. Dyspnea improved. No pain/bleeding at cathterization sites. Objective Vital Signs, Last 4 Hours Temp Pulse Resp BP Pulse Ox 01/12/18 07:45 98.7 F 89 18 115/69 96 General: Conversant, No Apparent Distress HEENT: Atraumatic, Normocephaly, Mucus Membranes Moist Neck: No JVD, Normal carotid pulses Cardiac: Reg Rate and Rhythm, Normal S1 and S2, No Murmur Lungs: Normal Breath Sounds, No Wheeze, Rales, Rhonchi Neuro: Alert and responsive, No focal deficits noted Abdomen: Soft, Non-Tender Skin: No rashes noted on visualized skin Musculoskeletal: No Chest Wall Tenderness Extremities: No Clubbing, No Cyanosis, No Edema, Normal Pulses, Other (R groin and L radial cath site- nontender, no bleeding/hematoma) Results 01/12/18 05:10 01/12/18 05:10 Lab Results 01/11/18 01/11/18 01/12/18 21:55 22:57 05:10 WBC 14.1 H Hgb 12.6 L D Hct 39.1 Plt Count 160 INR 1.4 APTT 32.2 Sodium Potassium Chloride Carbon Dioxide BUN Creatinine Glucose Calcium Magnesium Troponin I 0.03 01/12/18 01/12/18 05:10 05:10 WBC Hgb Hct Plt Count INR APTT Sodium 129 L Potassium 5.0 Chloride 98 Carbon Dioxide 13 L BUN 51 H Creatinine 2.15 H Glucose 456 H Calcium 7.5 L Magnesium 1.4 L Troponin I 0.30 H* Consult Discharge Plan - Plan Referrals: Prisca Perez, CARE ANALYST [Primary Care Provider] -
[2018-01-12] MEDS ORDERED: cefTRIAXone 1,000 MG in Water for inj. (sterile) 20 ML 10 ML IVP SCH (12:00)
[2018-01-12] MEDS ORDERED: *HR* Dextrose 50 % in Water (Syg) 50 ML SYRINGE IVP PRN (12:46)
[2018-01-12] MEDS ORDERED: Dextrose Gel 15 GM/37.5 ML TUBE PO PRN ×2 (12:46)
[2018-01-12] MEDS ORDERED: D5% in Water 1,000 ML IVC PRN (12:46)
[2018-01-12] MEDS ORDERED: *HR* Magnesium Sulfate 1 GM/2 ML VIAL IM STA (12:47)
[2018-01-12 13:29] LABS: Estimated Average Glucose 255 mg/dl; Hemoglobin A1C 10.5 %
[2018-01-12] MEDS: Lisinopril 20 MG TABLET PO SCH (13:33)
[2018-01-12] MEDS: hydroCHLOROthiazide 25 MG TABLET PO SCH (13:33)
[2018-01-12] MEDS: amLODIPine 5 MG TABLET PO SCH (13:33)
[2018-01-12] MEDS: Metoprolol XL (24 HR) Succ 50 MG TAB.ER.24H PO SCH (13:33)
[2018-01-12] MEDS: Azithromycin 500 MG in D5% in Water 250 ML IVPB SCH (13:33)
--- NOTE | 2018-01-12 14:04 | Internal Med Progress Note ---
Date of Encounter: 01/12/18 Time of Encounter: 12:47 - Assessment and plan (1) Community acquired pneumonia Current Visit: Yes Status: Acute Assessment and plan: Continue IV Rocephin and IV Zithromax for community-acquired pneumonia. Continue supplemental O2 PRN; wean to room air as tolerated. Continue nebs. Discontinue IV fluids as patient states that he feels "full." Qualifiers: Laterality: unspecified laterality Qualified Code(s): J18.9 - Pneumonia, unspecified organism (2) Chest pain Current Visit: Yes Status: Resolved Assessment and plan: Resolved. Cardiology consulted; appreciate input. Had [facility] yesterday with no further interventions. Qualifiers: Chest pain type: other chest pain Qualified Code(s): R07.89 - Other chest pain; R07.8 - Other chest pain (3) Discussion about advance care planning held with family member Current Visit: Yes Status: Acute Assessment and plan: Patient now DNR-CC after discussion with patient and . (4) CKD (chronic kidney disease) stage 3, GFR 30-59 ml/min Current Visit: Yes Status: Chronic Assessment and plan: Stable around baseline. Continue to monitor. Recheck BMP in AM. (5) Diabetes mellitus Current Visit: Yes Status: Chronic Assessment and plan: Continue accuchecks and SSI QID AC/HS. Qualifiers: Diabetes mellitus type: type 2 Diabetes mellitus custodial insulin use: without custodial use Diabetes mellitus complication status: with kidney complications Diabetes mellitus complication detail: with chronic kidney disease Chronic kidney disease stage: stage 3 (moderate) Qualified Code(s): E11.22 - Type 2 diabetes mellitus with diabetic chronic kidney disease; N18.3 - Chronic kidney disease, stage 3 (moderate); N18.3 - Chronic kidney disease, stage 3 (moderate) (6) DVT prophylaxis Current Visit: Yes Status: Acute Assessment and plan: Continue SQ heparin. - Time Spent With Patient Total time spent is greater than 50% in coordination of care (as documented) at patient's floor/unit and/or counseling patient: 25 - 35 minutes - Subjective Interval history: Patient had no acute events overnight. He states that he is feeling "great" today. He denies chest pain, SOB, fever, chills, nausea, vomiting, or abdominal pain. He has no complaints. is in room today and all three of us discussed code status. Patient and elect to make patient DNR-CC. I have explained what will and will not be done, and that our focus will be comfort care. All questions were answered. Patient and both verbalized understanding. I will place consent paper in chart and change code status in EMR. - Constitutional Vitals: Temp Pulse Resp BP Pulse Ox 97.5 F L 87 18 123/73 96 01/12/18 13:27 01/12/18 13:27 01/12/18 13:27 01/12/18 13:27 01/12/18 13:27 General appearance: Present: cooperative, A&O X 3, pleasant, no acute distress, answers questions appropriately - Respiratory Respiratory exam: Present: CTAB. Absent: accessory muscle use, rales, rhonchi, wheezes Additional comments: Mildly labored WOB - Cardiovascular Cardiovascular exam: Present: RRR, +S1, +S2. Absent: diastolic murmur, gallop, rubs, systolic murmur Additional comments: No BLE edema - GI/Abdominal GI/Abdominal exam: Present: normal bowel sounds, soft. Absent: distended, hepatomegaly, mass, splenomegaly, tenderness - Psychiatric Psychiatric exam: Present: normal affect, normal mood. Absent: agitated, anxious, depressed - Skin Skin exam: Present: dry, intact, warm. Absent: cyanosis, rash Internal Medicine: Result - Labs CBC & Chem 7: 01/12/18 05:10 01/12/18 05:10 Labs: Short CBC 01/12/18 Range/Units 05:10 WBC 14.1 H (4.3-11.1) K/mcL Hgb 12.6 L D (12.9-16.9) g/dL Hct 39.1 (37.5-50.1) % Plt Count 160 (140-400) K/mcL Neutrophils # 12.9 H (1.6-8.9) K/mcL BMP 01/12/18 05:10 Sodium 129 L Potassium 5.0 Chloride 98 Carbon Dioxide 13 L BUN 51 H Creatinine 2.15 H Glucose 456 H Calcium 7.5 L Cardiac Enzymes 01/11/18 01/12/18 01/12/18 Range/Units 22:57 05:10 11:11 Troponin I 0.03 0.30 H* 2.53 H* (< 0.04) ng/mL - ABG Interpretation ABG results: PT/INR, D-dimer PT 14.7 Seconds (9.4-12.1) H 01/11/18 21:55 Consult Discharge Plan - Plan Referrals: Prisca Perez CNP [Primary Care Provider] -
[2018-01-12] MEDS ORDERED: Insulin LISPRO 300 UNITS/3 ML VIAL SQ SCH ×2 (21:00)
[2018-01-13 03:11] LABS: Hematocrit 39.4 % (37.5-50.1); Hemoglobin 13.4 g/dL (12.9-16.9); Lymphocytes # 0.8 K/mcL (0.6-4.6); Mean Corpuscular Hemoglobin 29.9 pg (28.0-33.3); Mean Corpuscular Volume 87.9 fL (83.0-100.0); Mean Platelet Volume 11.1 fL (9.4-12.4); Platelet Count 190 K/mcL (140-400); Red Blood Count 4.48 M/mcL (4.19-5.50); Red Cell Distribution Width 13.1 % (11.5-14.5)
[2018-01-13 03:31] LABS: Calcium 8.5 mg/dL (8.6-10.3); Potassium 4.2 mEq/L (3.5-5.1)
[2018-01-13 04:13] LABS: Monocytes # 2.4 K/mcL (0.0-1.3); Neutrophils # 36.9 K/mcL (1.6-8.9); Platelet Estimate Normal (Normal); Toxic Vacuolation Present (Not Present)
[2018-01-13 04:22] LABS: Mean Corpuscular Hemoglobin 29.5 pg (28.0-33.3)
[2018-01-13] MEDS: Ipratropium/Albuterol Neb 3 ML IH SCH ×4 (04:23→21:24)
[2018-01-13 04:24] LABS: Hematocrit 39.3 % (37.5-50.1); Hemoglobin 13.2 g/dL (12.9-16.9); Mean Corpuscular HGB Conc 33.6 g/dL (31.6-35.5); Mean Corpuscular Volume 87.9 fL (83.0-100.0); Mean Platelet Volume 10.9 fL (9.4-12.4); Platelet Count 173 K/mcL (140-400); Red Blood Count 4.47 M/mcL (4.19-5.50); Red Cell Distribution Width 13.1 % (11.5-14.5)
[2018-01-13 05:12] LABS: Eosinophils # 0.7 K/mcL (0.0-0.6); Lymphocytes # 1.4 K/mcL (0.6-4.6); Monocytes # 0.7 K/mcL (0.0-1.3); Neutrophils # 32.8 K/mcL (1.6-8.9); Platelet Estimate Normal (Normal); Toxic Granulation Present (Not Present)
[2018-01-13] MEDS: *HR* Heparin 5,000 UNIT/ML VIAL SQ SCH ×3 (05:41→21:04)
[2018-01-13] MEDS: Insulin LISPRO 300 UNITS/3 ML VIAL SQ SCH ×4 (08:45→21:05)
[2018-01-13] MEDS: cefTRIAXone 2,000 MG in Water for inj. (sterile) 20 ML IVP SCH (08:46)
[2018-01-13] MEDS: Lisinopril 20 MG TABLET PO SCH (08:46)
[2018-01-13] MEDS: hydroCHLOROthiazide 25 MG TABLET PO SCH (08:47)
[2018-01-13] MEDS: amLODIPine 5 MG TABLET PO SCH (08:47)
[2018-01-13] MEDS: Metoprolol XL (24 HR) Succ 50 MG TAB.ER.24H PO SCH (08:47)
[2018-01-13 09:05] LABS: Basophils % 0.2 %; Lymphocytes % 1.7 %; Mean Corpuscular Volume 89.5 fL (83.0-100.0); Red Cell Distribution Width 13.2 % (11.5-14.5)
[2018-01-13 09:06] LABS: Basophils # 0.1 K/mcL (0.0-0.2); Hematocrit 40.2 % (37.5-50.1); Hemoglobin 12.9 g/dL (12.9-16.9); Immature Granulocytes % 1.8 % (0-4); Lymphocytes # 0.7 K/mcL (0.6-4.6); Mean Corpuscular HGB Conc 32.1 g/dL (31.6-35.5); Mean Corpuscular Hemoglobin 28.7 pg (28.0-33.3); Mean Platelet Volume 10.6 fL (9.4-12.4); Monocytes # 1.6 K/mcL (0.0-1.3); Monocytes % 3.9 %; Neutrophils # 37.6 K/mcL (1.6-8.9); Platelet Count 186 K/mcL (140-400); Red Blood Count 4.49 M/mcL (4.19-5.50); Segmented Neutrophils % 92.4 %
[2018-01-13 09:37] LABS: Platelet Estimate Normal (Normal); Toxic Granulation Present (Not Present)
--- NOTE | 2018-01-13 10:15 | Electrocardiograph Report ---
[address] [place], [place] [address] Test Date: 2018-01-11 Pat Name: Kee Hernandez Department: 103 Room: 2A26 Gender: M [employer] Solutions Architect: WU : 1935 Requested By: Marie Acevedo Order Number: [id number] Reading MD: Lisa Asencio Measurements Intervals [place] Rate: 127 P: 40 GA: 152 QRS: 52 QRSD: 101 T: 76 QT: 320 QTc: 395 Interpretive Statements SINUS TACHYCARDIA INFERIOR MYOCARDIAL INFARCTION [40+ ms Q WAVE AND/OR ST/T ABNORMALITY IN II/aVF], PROBABLY OLD ST DEPRESSION, CONSIDER SUBENDOCARDIAL INJURY [0.1+ mV ST DEPRESSION] Electronically Signed On 01-13-2018 10:13:24 EDT by Lisa Asencio
--- NOTE | 2018-01-13 10:15 | Electrocardiograph Report ---
[address] [place], [place] [address] Test Date: 2018-01-11 Pat Name: Kee Hernandez Department: 103 Room: 2A26 Gender: M Assistant Maintenance Manager: WU : 1935 Requested By: [id number] Order Number: [id number] Reading MD: Lisa Asencio Measurements Intervals [place] Rate: 125 P: 55 AK: 149 QRS: 51 QRSD: 105 T: 74 QT: 327 QTc: 401 Interpretive Statements SINUS TACHYCARDIA INFERIOR MYOCARDIAL INFARCTION [40+ ms Q WAVE AND/OR ST/T ABNORMALITY IN II/aVF], PROBABLY OLD CONSIDER SUBENDOCARDIAL INJURY Electronically Signed On 01-13-2018 10:13:46 EDT by Lisa Asencio
--- NOTE | 2018-01-13 10:25 | Electrocardiograph Report ---
[place] [address] Test Date: 2018-01-11 Pat Name: Kee Hernandez Department: 103 Room: 2A26 Gender: M Complaint Clerk: CYRUS : 1935 Requested By: [id number] Order Number: [id number] Reading MD: Lisa Asencio Measurements Intervals [place] Rate: 87 P: 34 VT: 135 QRS: 2 QRSD: 94 T: 64 QT: 345 QTc: 390 Interpretive Statements SINUS RHYTHM WITH SINUS ARRHYTHMIA POSSIBLE LEFT ATRIAL ENLARGEMENT [-0.1mV P WAVE IN V1/V2] INFERIOR MYOCARDIAL INFARCTION [40+ ms Q WAVE AND/OR ST/T ABNORMALITY IN II/aVF], OF INDETERMINATE AGE Electronically Signed On 01-13-2018 10:24:21 EDT by Lisa Asencio
[2018-01-13] MEDS: Azithromycin 500 MG in D5% in Water 250 ML IVPB SCH (11:53)
--- NOTE | 2018-01-13 15:41 | Internal Med Progress Note ---
Date of Encounter: 01/13/18 Time of Encounter: 11:17 - Assessment and plan (1) Community acquired pneumonia Current Visit: Yes Status: Acute Assessment and plan: Improving. Continue IV Rocephin and IV Zithromax for community-acquired pneumonia. Continue supplemental O2 PRN; wean to room air as tolerated. Continue nebs. Qualifiers: Laterality: unspecified laterality Qualified Code(s): J18.9 - Pneumonia, unspecified organism (2) Chest pain Current Visit: Yes Status: Resolved Assessment and plan: Resolved. Cardiology consulted; appreciate input. Had [facility] this hospitalization with no further interventions. Qualifiers: Chest pain type: other chest pain Qualified Code(s): R07.89 - Other chest pain; R07.8 - Other chest pain (3) Discussion about advance care planning held with family member Current Visit: Yes Status: Acute Assessment and plan: Patient now DNR-CC after discussion with patient and yesterday. (4) CKD (chronic kidney disease) stage 3, GFR 30-59 ml/min Current Visit: Yes Status: Chronic Assessment and plan: Improved. At baseline. Continue to monitor. Recheck BMP in AM. (5) Diabetes mellitus Current Visit: Yes Status: Chronic Assessment and plan: Continue accuchecks and increase to high dose SSI QID AC/HS. Qualifiers: Diabetes mellitus type: type 2 Diabetes mellitus retail bakery manager insulin use: without retail bakery manager use Diabetes mellitus complication status: with kidney complications Diabetes mellitus complication detail: with chronic kidney disease Chronic kidney disease stage: stage 3 (moderate) Qualified Code(s): E11.22 - Type 2 diabetes mellitus with diabetic chronic kidney disease; N18.3 - Chronic kidney disease, stage 3 (moderate); N18.3 - Chronic kidney disease, stage 3 (moderate) (6) Debility Current Visit: Yes Status: Acute Assessment and plan: Consult PT/OT. (7) Insomnia Current Visit: Yes Status: Acute Assessment and plan: Start melatonin 9 mg QHS. Qualifiers: Insomnia type: other insomnia Qualified Code(s): G47.09 - Other insomnia (8) Leukocytosis Current Visit: Yes Status: Acute Assessment and plan: WBC jumped from 14.1 to 40.7 today. Patient improving clinically. Will monitor closely. Repeat CBC in AM. Qualifiers: Leukocytosis type: unspecified Qualified Code(s): D72.829 - Elevated white blood cell count, unspecified (9) DVT prophylaxis Current Visit: Yes Status: Acute Assessment and plan: Continue SQ heparin. - Time Spent With Patient Total time spent is greater than 50% in coordination of care (as documented) at patient's floor/unit and/or counseling patient: less than 15 minutes - Subjective Interval history: Patient had no acute events overnight. He states that he is feeling better today. He denies chest pain, SOB, fever, chills, nausea, vomiting, or abdominal pain. He has no complaints. - Constitutional Vitals: Temp Pulse Resp BP Pulse Ox 97.7 F 80 18 106/56 94 01/13/18 13:46 01/13/18 13:46 01/13/18 13:46 01/13/18 13:46 01/13/18 13:46 General appearance: Present: cooperative, A&O X 3, pleasant, no acute distress, answers questions appropriately - Respiratory Respiratory exam: Present: CTAB. Absent: accessory muscle use, rales, rhonchi, wheezes Additional comments: Mildly labored WOB - Cardiovascular Cardiovascular exam: Present: RRR, +S1, +S2. Absent: diastolic murmur, gallop, rubs, systolic murmur Additional comments: No BLE edema - GI/Abdominal GI/Abdominal exam: Present: normal bowel sounds, soft. Absent: distended, hepatomegaly, mass, splenomegaly, tenderness - Psychiatric Psychiatric exam: Present: normal affect, normal mood. Absent: agitated, anxious, depressed - Skin Skin exam: Present: dry, intact, warm. Absent: cyanosis, rash Internal Medicine: Result - Labs CBC & Chem 7: 01/13/18 08:54 01/13/18 02:43 Labs: Short CBC 01/13/18 01/13/18 01/13/18 Range/Units 02:43 04:01 08:54 WBC 40.1 H* D 35.7 H* 40.7 H* (4.3-11.1) K/mcL Hgb 13.4 13.2 12.9 (12.9-16.9) g/dL Hct 39.4 39.3 40.2 (37.5-50.1) % Plt Count 190 173 186 (140-400) K/mcL Neutrophils # 36.9 H 32.8 H 37.6 H (1.6-8.9) K/mcL BMP 01/13/18 02:43 Sodium 133 L Potassium 4.2 Chloride 104 Carbon Dioxide 19 L BUN 47 H Creatinine 1.87 H Glucose 133 H Calcium 8.5 L - ABG Interpretation ABG results: PT/INR, D-dimer PT 14.7 Seconds (9.4-12.1) H 01/11/18 21:55 Consult Discharge Plan - Plan Referrals: Prisca Perez, [employer] [Primary Care Provider] -
[2018-01-13] MEDS: Sennosides/Docusate Sodium TABLET PO SCH ×2 (16:15→21:04)
[2018-01-13] MEDS: Melatonin 3 MG TABLET PO SCH (21:05)
[2018-01-14] MEDS: Ipratropium/Albuterol Neb 3 ML IH SCH ×4 (04:20→21:52)
[2018-01-14 06:18] LABS: Basophils % 0.1 %; Hematocrit 36.3 % (37.5-50.1); Hemoglobin 12.2 g/dL (12.9-16.9); Lymphocytes # 0.9 K/mcL (0.6-4.6); Lymphocytes % 3.5 %; Mean Corpuscular HGB Conc 33.6 g/dL (31.6-35.5); Mean Corpuscular Hemoglobin 29.5 pg (28.0-33.3); Mean Corpuscular Volume 87.9 fL (83.0-100.0); Mean Platelet Volume 11.2 fL (9.4-12.4); Monocytes # 1.4 K/mcL (0.0-1.3); Monocytes % 5.7 %; Neutrophils # 22.3 K/mcL (1.6-8.9); Platelet Count 171 K/mcL (140-400); Red Blood Count 4.13 M/mcL (4.19-5.50); Red Cell Distribution Width 13.2 % (11.5-14.5); Segmented Neutrophils % 89.7 %
[2018-01-14 06:39] LABS: Calcium 8.5 mg/dL (8.6-10.3); Potassium 4.8 mEq/L (3.5-5.1)
[2018-01-14] MEDS: *HR* Heparin 5,000 UNIT/ML VIAL SQ SCH ×3 (06:45→20:49)
[2018-01-14 06:56] LABS: Platelet Estimate Normal (Normal)
[2018-01-14] MEDS: Insulin LISPRO 300 UNITS/3 ML VIAL SQ SCH ×4 (08:37→20:49)
[2018-01-14] MEDS: hydroCHLOROthiazide 25 MG TABLET PO SCH (08:38)
[2018-01-14] MEDS: Lisinopril 20 MG TABLET PO SCH (08:38)
[2018-01-14] MEDS: Metoprolol XL (24 HR) Succ 50 MG TAB.ER.24H PO SCH (08:38)
[2018-01-14] MEDS: amLODIPine 5 MG TABLET PO SCH (08:38)
[2018-01-14] MEDS: Sennosides/Docusate Sodium TABLET PO SCH ×2 (08:38→20:49)
[2018-01-14] MEDS: cefTRIAXone 2,000 MG in Water for inj. (sterile) 20 ML 20 ML IVP SCH (08:46)
[2018-01-14] MEDS: cefTRIAXone 2,000 MG in Water for inj. (sterile) 20 ML IVP SCH (09:11)
[2018-01-14] MEDS: Azithromycin 500 MG in D5% in Water 250 ML IVPB SCH (12:22)
--- NOTE | 2018-01-14 14:20 | Internal Med Progress Note ---
Date of Encounter: 01/14/18 Time of Encounter: 11:20 - Assessment and plan (1) Community acquired pneumonia Current Visit: Yes Status: Acute Assessment and plan: Improving Mostly bacterial also concerned for aspiration Ordered speech eval.. who suggested nectar thick liquids for now also recommend video swallow eval in am mean while cont empirical abx IV Rocephin and IV Zithromax for community- acquired pneumonia. Continue supplemental O2 PRN; wean to room air as tolerated Qualifiers: Laterality: unspecified laterality Qualified Code(s): J18.9 - Pneumonia, unspecified organism (2) Acute respiratory failure with hypoxia Current Visit: Yes Status: Acute Assessment and plan: due to PNA need to wean him off the O2 as he tolerated cont Duoneb PRN (3) Leukocytosis Current Visit: Yes Status: Acute Assessment and plan: Due to PNA and reactive too started trending down cont monitor Qualifiers: Leukocytosis type: unspecified Qualified Code(s): D72.829 - Elevated white blood cell count, unspecified (4) Diabetes mellitus Current Visit: Yes Status: Chronic Assessment and plan: Continue accuchecks and increase to high dose SSI QID AC/HS. Qualifiers: Diabetes mellitus type: type 2 Diabetes mellitus terminal worker insulin use: without terminal worker use Diabetes mellitus complication status: with kidney complications Diabetes mellitus complication detail: with chronic kidney disease Chronic kidney disease stage: stage 3 (moderate) Qualified Code(s): E11.22 - Type 2 diabetes mellitus with diabetic chronic kidney disease; N18.3 - Chronic kidney disease, stage 3 (moderate); N18.3 - Chronic kidney disease, stage 3 (moderate) (5) DVT prophylaxis Current Visit: Yes Status: Acute Assessment and plan: Continue SQ heparin. (6) CKD (chronic kidney disease) stage 3, GFR 30-59 ml/min Current Visit: Yes Status: Chronic Assessment and plan: Improved. At baseline. Continue to monitor. Recheck BMP in AM. (7) Chest pain Current Visit: Yes Status: Resolved Assessment and plan: Resolved. Cardiology consulted; appreciate input. Had [facility] this hospitalization with no further interventions. Qualifiers: Chest pain type: other chest pain Qualified Code(s): R07.89 - Other chest pain; R07.8 - Other chest pain (8) Discussion about advance care planning held with family member Current Visit: Yes Status: Acute Assessment and plan: Patient now DNR-CC after discussion with patient and (9) Debility Current Visit: Yes Status: Acute Assessment and plan: PT/OT. [facility] placement for short term rehab (10) Insomnia Current Visit: Yes Status: Acute Assessment and plan: Melatonin 9 mg QHS. Qualifiers: Insomnia type: other insomnia Qualified Code(s): G47.09 - Other insomnia (11) Dementia Current Visit: Yes Status: Acute Qualifiers: Dementia type: vascular dementia Dementia behavioral disturbance: without behavioral disturbance Qualified Code(s): F01.50 - Vascular dementia without behavioral disturbance - Time Spent With Patient Total time spent is greater than 50% in coordination of care (as documented) at patient's floor/unit and/or counseling patient: - Subjective Interval history: Mr. Hernandez is a 82 year old male with history of CAD s/p stent in the 80s, DM, HTN, PVD, and CKD III, who presented to our ER with a cough and shortness of breath for 4 days or so. He was admitted in the hospital for acute pneumonia and hypoxic resp failure. Pt was started on empirical abx Rocephin and Azithromycin. His symptoms improved now. Denied any CP. He is alert, awake and O x to self, person only. Looks confused and demented. - Constitutional Vitals: Temp Pulse Resp BP Pulse Ox 98.2 F 92 18 129/62 90 01/14/18 11:15 01/14/18 11:15 01/14/18 11:15 01/14/18 11:15 01/14/18 11:15 General appearance: Present: cooperative, A&O X 3, pleasant, no acute distress, answers questions appropriately - Head Head exam: Present: atraumatic, normal inspection - Neck Neck exam general surgery: Present: supple - Respiratory Respiratory exam: Present: decreased breath sounds, rhonchi (mild), wheezes ( mild). Absent: rales, respiratory distress - Cardiovascular Cardiovascular exam: Present: RRR, +S1, +S2. Absent: tachycardia - GI/Abdominal GI/Abdominal exam: Present: normal bowel sounds, soft. Absent: rebound, rigid, tenderness - Extremities Exam Extremities exam: Absent: calf tenderness, pedal edema, tenderness - Back Exam Back exam: Absent: CVA tenderness (L), CVA tenderness (R) - Neurological Exam Neurological exam: Present: alert - Psychiatric Psychiatric exam: Present: depressed Internal Medicine: Result - Labs CBC & Chem 7: 01/14/18 05:47 01/14/18 05:47 Labs: Short CBC 01/14/18 Range/Units 05:47 WBC 24.9 H (4.3-11.1) K/mcL Hgb 12.2 L (12.9-16.9) g/dL Hct 36.3 L (37.5-50.1) % Plt Count 171 (140-400) K/mcL Neutrophils # 22.3 H (1.6-8.9) K/mcL BMP 01/14/18 05:47 Sodium 132 L Potassium 4.8 Chloride 102 Carbon Dioxide 20 L BUN 52 H Creatinine 1.78 H Glucose 237 H Calcium 8.5 L - ABG Interpretation ABG results: PT/INR, D-dimer PT 14.7 Seconds (9.4-12.1) H 01/11/18 21:55 Consult Discharge Plan - Plan Referrals: Prisca Perez, [facility] [Primary Care Provider] -
[2018-01-14] MEDS: Melatonin 3 MG TABLET PO SCH (20:49)
[2018-01-15] MEDS: Ipratropium/Albuterol Neb 3 ML IH SCH ×4 (03:33→22:26)
[2018-01-15 04:00] LABS: Basophils % 0.1 %; Eosinophils % 0.1 %; Hematocrit 35.2 % (37.5-50.1); Hemoglobin 11.9 g/dL (12.9-16.9); Immature Granulocytes % 0.5 % (0-4); Lymphocytes # 1.1 K/mcL (0.6-4.6); Lymphocytes % 8.9 %; Mean Corpuscular HGB Conc 33.8 g/dL (31.6-35.5); Mean Corpuscular Hemoglobin 29.1 pg (28.0-33.3); Mean Corpuscular Volume 86.1 fL (83.0-100.0); Monocytes % 7.8 %; Neutrophils # 10.5 K/mcL (1.6-8.9); Platelet Count 154 K/mcL (140-400); Red Blood Count 4.09 M/mcL (4.19-5.50); Red Cell Distribution Width 13.2 % (11.5-14.5); Segmented Neutrophils % 82.6 %
[2018-01-15 04:20] LABS: Calcium 8.5 mg/dL (8.6-10.3); Magnesium 1.6 mg/dL (1.6-2.6); Potassium 4.5 mEq/L (3.5-5.1)
[2018-01-15] MEDS: *HR* Heparin 5,000 UNIT/ML VIAL SQ SCH ×3 (06:22→21:58)
[2018-01-15] MEDS: Insulin LISPRO 300 UNITS/3 ML VIAL SQ SCH ×4 (08:16→22:29)
[2018-01-15] MEDS: cefTRIAXone 2,000 MG in Water for inj. (sterile) 20 ML 20 ML IVP SCH (08:17)
[2018-01-15] MEDS: Sennosides/Docusate Sodium TABLET PO SCH ×2 (08:18→22:15)
[2018-01-15] MEDS: Metoprolol XL (24 HR) Succ 50 MG TAB.ER.24H PO SCH (09:56)
[2018-01-15] MEDS: Lisinopril 20 MG TABLET PO SCH (09:56)
[2018-01-15] MEDS: hydroCHLOROthiazide 25 MG TABLET PO SCH (09:56)
[2018-01-15] MEDS: amLODIPine 5 MG TABLET PO SCH (09:56)
[2018-01-15] MEDS: Azithromycin 500 MG in D5% in Water 250 ML IVPB SCH (11:25)
--- NOTE | 2018-01-15 14:15 | Internal Med Progress Note ---
Date of Encounter: 01/15/18 Time of Encounter: 11:45 - Assessment and plan (1) Community acquired pneumonia Current Visit: Yes Status: Acute Assessment and plan: Improving Mostly bacterial also concerned for aspiration Speech therapy suggested nectar thick liquids for now video swallow eval - P Finished 5 days Azithromycin Switched to PO Keflex # 5/7 Continue supplemental O2 PRN; wean to room air as tolerated Qualifiers: Laterality: unspecified laterality Qualified Code(s): J18.9 - Pneumonia, unspecified organism (2) Acute respiratory failure with hypoxia Current Visit: Yes Status: Acute Assessment and plan: due to PNA need to wean him off the O2 as he tolerated cont Duoneb PRN (3) Leukocytosis Current Visit: Yes Status: Acute Assessment and plan: Due to PNA and reactive too started trending down cont monitor Qualifiers: Leukocytosis type: unspecified Qualified Code(s): D72.829 - Elevated white blood cell count, unspecified (4) Diabetes mellitus Current Visit: Yes Status: Chronic Assessment and plan: Continue accuchecks and increase to high dose SSI QID AC/HS. Qualifiers: Diabetes mellitus type: type 2 Diabetes mellitus long-term insulin use: without long-term use Diabetes mellitus complication status: with kidney complications Diabetes mellitus complication detail: with chronic kidney disease Chronic kidney disease stage: stage 3 (moderate) Qualified Code(s): E11.22 - Type 2 diabetes mellitus with diabetic chronic kidney disease; N18.3 - Chronic kidney disease, stage 3 (moderate); N18.3 - Chronic kidney disease, stage 3 (moderate) (5) DVT prophylaxis Current Visit: Yes Status: Acute Assessment and plan: Continue SQ heparin. (6) CKD (chronic kidney disease) stage 3, GFR 30-59 ml/min Current Visit: Yes Status: Chronic Assessment and plan: Improved. At baseline. Continue to monitor. Recheck BMP in AM. (7) Chest pain Current Visit: Yes Status: Resolved Assessment and plan: Resolved. Qualifiers: Chest pain type: other chest pain Qualified Code(s): R07.89 - Other chest pain; R07.8 - Other chest pain (8) Discussion about advance care planning held with family member Current Visit: Yes Status: Acute Assessment and plan: Patient now DNR-CC after discussion with patient and (9) Debility Current Visit: Yes Status: Acute Assessment and plan: PT/OT. [facility] placement for short term rehab (10) Insomnia Current Visit: Yes Status: Acute Assessment and plan: Melatonin 9 mg QHS. Qualifiers: Insomnia type: other insomnia Qualified Code(s): G47.09 - Other insomnia (11) Dementia Current Visit: Yes Status: Acute Qualifiers: Dementia type: vascular dementia Dementia behavioral disturbance: without behavioral disturbance Qualified Code(s): F01.50 - Vascular dementia without behavioral disturbance (12) NSTEMI (non-ST elevated myocardial infarction) Current Visit: Yes Status: Resolved Assessment and plan: s/p LHC showed severe [place] three vessel CAD with 3/4 grafts patent Family do not wanted any aggressive / invasive therapy (13) Coronary artery disease Current Visit: Yes Status: Chronic Assessment and plan: s/p CABG cont all home meds Qualifiers: Coronary Disease-Associated Artery/Lesion type: [place] artery [place] vs. transplanted heart: [place] heart Associated angina: with unstable angina Qualified Code(s): I25.110 - Atherosclerotic heart disease of [place] coronary artery with unstable angina pectoris - Time Spent With Patient Total time spent is greater than 50% in coordination of care (as documented) at patient's floor/unit and/or counseling patient: - Subjective Interval history: Mr. Hernandez is a 82 year old male with history of CAD s/p stent in the 80s, DM, HTN, PVD, and CKD III, who presented to our ER with a cough and shortness of breath for 4 days or so. He was admitted in the hospital for acute pneumonia and hypoxic resp failure. Pt was started on empirical abx Rocephin and Azithromycin. His symptoms improved now. Denied any CP. He is alert, awake and O x 3 today. - Constitutional Vitals: Temp Pulse Resp BP Pulse Ox 97.5 F L 96 15 138/68 94 01/15/18 11:22 01/15/18 11:22 01/15/18 11:22 01/15/18 11:22 01/15/18 11:22 General appearance: Present: cooperative, A&O X 3, pleasant, no acute distress, answers questions appropriately - Head Head exam: Present: atraumatic, normal inspection - Neck Neck exam general surgery: Present: supple - Respiratory Respiratory exam: Present: decreased breath sounds. Absent: rales, respiratory distress, rhonchi, wheezes - Cardiovascular Cardiovascular exam: Present: RRR, +S1, +S2. Absent: tachycardia - GI/Abdominal GI/Abdominal exam: Present: normal bowel sounds, soft. Absent: rebound, rigid, tenderness - Extremities Exam Extremities exam: Absent: calf tenderness, pedal edema, tenderness - Back Exam Back exam: Absent: CVA tenderness (L), CVA tenderness (R) - Neurological Exam Neurological exam: Present: alert, oriented X3, no focal deficits - Psychiatric Psychiatric exam: Present: normal affect, normal mood Internal Medicine: Result - Labs CBC & Chem 7: 01/15/18 03:43 01/15/18 03:43 Labs: Short CBC 01/15/18 Range/Units 03:43 WBC 12.7 H (4.3-11.1) K/mcL Hgb 11.9 L (12.9-16.9) g/dL Hct 35.2 L (37.5-50.1) % Plt Count 154 (140-400) K/mcL Neutrophils # 10.5 H (1.6-8.9) K/mcL BMP 01/15/18 03:43 Sodium 135 L Potassium 4.5 Chloride 101 Carbon Dioxide 24 BUN 38 H Creatinine 1.63 H Glucose 142 H Calcium 8.5 L - ABG Interpretation ABG results: PT/INR, D-dimer PT 14.7 Seconds (9.4-12.1) H 01/11/18 21:55 - Impressions Impressions Videofluoroscopic Swallow 01/14/18 14:07 IMPRESSION: No penetration or aspiration observed. Mild residual with all consistencies within the vallecula. Please see separate speech pathology report for full discussion of findings and recommendations. D/ / Brian Aquino MD / Brian Aquino MD Interpreting Provider: Brian Aquino MD Consult Discharge Plan - Plan Referrals: Prisca Perez CNP [Primary Care Provider] -
[2018-01-15] MEDS: Melatonin 3 MG TABLET PO SCH (21:58)
[2018-01-15] MEDS: cephALEXin 500 MG CAPSULE PO SCH (21:58)
[2018-01-16] MEDS: Ipratropium/Albuterol Neb 3 ML IH SCH ×2 (03:34→10:50)
[2018-01-16] MEDS: *HR* Heparin 5,000 UNIT/ML VIAL SQ SCH (05:48)
[2018-01-16] MEDS: cephALEXin 500 MG CAPSULE PO SCH (08:14)
[2018-01-16] MEDS: hydroCHLOROthiazide 25 MG TABLET PO SCH (08:14)
[2018-01-16] MEDS: Metoprolol XL (24 HR) Succ 50 MG TAB.ER.24H PO SCH (08:14)
[2018-01-16] MEDS: Lisinopril 20 MG TABLET PO SCH (08:14)
[2018-01-16] MEDS: amLODIPine 5 MG TABLET PO SCH (08:14)
[2018-01-16] MEDS: Sennosides/Docusate Sodium TABLET PO SCH (08:14)
[2018-01-16] MEDS: Insulin LISPRO 300 UNITS/3 ML VIAL SQ SCH ×2 (08:15→11:26)
--- NOTE | 2018-01-16 08:55 | Discharge Summary ---
- NOTES TO OUTPATIENT PROVIDER Notes to Outpatient Provider: f/u with PCP in one week. Speech recommend for sitting up right when eat, as well as do double swallow, small bites and sips only Date of Encounter: 01/16/18 Time of Encounter: 08:53 - Discharge Diagnosis (1) Community acquired pneumonia Priority: Primary Status: Acute Qualifiers: Laterality: unspecified laterality Qualified Code(s): J18.9 - Pneumonia, unspecified organism (2) Acute respiratory failure with hypoxia Priority: Primary Status: Acute (3) Leukocytosis Priority: Secondary Status: Acute Qualifiers: Leukocytosis type: unspecified Qualified Code(s): D72.829 - Elevated white blood cell count, unspecified (4) Diabetes mellitus Priority: Secondary Status: Chronic Qualifiers: Diabetes mellitus type: type 2 Diabetes mellitus senior care insulin use: without property assessment monitor use Diabetes mellitus complication status: with kidney complications Diabetes mellitus complication detail: with chronic kidney disease Chronic kidney disease stage: stage 3 (moderate) Qualified Code(s): E11.22 - Type 2 diabetes mellitus with diabetic chronic kidney disease; N18.3 - Chronic kidney disease, stage 3 (moderate); N18.3 - Chronic kidney disease, stage 3 (moderate) (5) DVT prophylaxis Priority: Secondary Status: Acute (6) CKD (chronic kidney disease) stage 3, GFR 30-59 ml/min Priority: Secondary Status: Chronic (7) Chest pain Priority: Secondary Status: Resolved Qualifiers: Chest pain type: other chest pain Qualified Code(s): R07.89 - Other chest pain; R07.8 - Other chest pain (8) Discussion about advance care planning held with family member Priority: Secondary Status: Acute (9) Debility Priority: Secondary Status: Acute (10) Insomnia Priority: Secondary Status: Acute Qualifiers: Insomnia type: other insomnia Qualified Code(s): G47.09 - Other insomnia (11) Dementia Priority: Secondary Status: Acute Qualifiers: Dementia type: vascular dementia Dementia behavioral disturbance: without behavioral disturbance Qualified Code(s): F01.50 - Vascular dementia without behavioral disturbance (12) NSTEMI (non-ST elevated myocardial infarction) Priority: Secondary Status: Resolved (13) Coronary artery disease Priority: Secondary Status: Chronic Qualifiers: Coronary Disease-Associated Artery/Lesion type: [place] artery [place] vs. transplanted heart: [place] heart Associated angina: with unstable angina Qualified Code(s): I25.110 - Atherosclerotic heart disease of [place] coronary artery with unstable angina pectoris Hospital course: Mr. Hernandez is a 82 year old male with history of CAD s/p stent s/p CABG, DM, HTN , PVD, and CKD III, who presented to our ER with a cough and shortness of breath for 4 days or so. He was admitted in the hospital for acute pneumonia and hypoxic resp failure. Pt was started on empirical abx Rocephin and Azithromycin. He also happened to have acute initial NSTEMI Trop peaked at 2.53. So pt did go for LHC which showed severe [place] three vessel CAD with 3/4 grafts patent. Family do not wanted any aggressive / invasive therapy. At this point card suggested continue with medical therapy ASA, ACEi, BB and statin. Regarding his hypoxic resp failure due to pneumonia started improving slowly. So switched to PO abx today Keflex. He was seen by PT / OT who recommend ECF placement for short term rehab. Pt is medically stable so will d/c him to ECF today when his pre cert get approved. - Time Spent with Patient Total time spent providing and/or coordinating discharge services: - Discharge Medications Prescriptions: Aspirin Enteric Coated [Aspirin EC] 81 mg PO DAILY #30 tablet. Home Medications: Allopurinol [Zyloprim 100 MG] 100 mg PO DAILY 01/12/18 [History] Citalopram Hydrobromide [Citalopram HBr] 20 mg PO DAILY 01/12/18 [History] Lisinopril [Zestril] 40 mg PO DAILY 01/12/18 [History] Metoprolol Succinate [Toprol Xl] 50 mg PO DAILY 01/12/18 [History] amLODIPine [Norvasc] 5 mg PO DAILY 01/12/18 [History] hydroCHLOROthiazide [Hydrochlorothiazide] 25 mg PO DAILY 01/12/18 [History] Aspirin Enteric Coated [Aspirin EC] 81 mg PO DAILY #30 tablet. 01/16/18 [Rx] Ipratropium/Albuterol Neb [Duoneb] 3 ml IH [id number] PRN inhsol 01/16/18 [Rx] Melatonin 3 mg PO HS tablet 01/16/18 [Rx] cephALEXin [Keflex] 500 mg PO BID #4 capsule 01/16/18 [Rx] glipiZIDE [Glucotrol] 5 mg PO BID #0 01/16/18 [Rx] Allergies/Adverse Reactions: 3 Allergy/AdvReac Type Severity Reaction Status Date / Time No Known Allergies Allergy Verified 01/12/18 11:09 Date of admission: 01/11/18 21:10 Primary care physician: Prisca Perez Consults: 01/11/18 22:07 Consult to Cardiology [CONS] Stat Comment: Consulting Provider: Cardiology Nabb Reason for Consult: ??EKG changes. Chest pain Call Completed: Yes 01/13/18 10:48 Consult to Physical Therapy [CONS] Routine Comment: Evaluate, develop and implement POC Reason for Consult: weakness. Does patient have active BEDREST order?: No Is patient medically & hemodynamically stable?: Yes Patient assessed for mobility or mobilized this visit?: No 01/13/18 10:49 Consult to Occupational Therapy [CONS] Routine Comment: Evaluate, develop and implement POC Reason for Consult: weakness. Does patient have active BEDREST order?: No Is patient medically & hemodynamically stable?: Yes Patient assessed for mobility or mobilized this visit?: No 01/14/18 07:34 Consult to Teacher [CONS] Routine Reason for SW Consult: needs ecf - Constitutional Vitals: Temp Pulse Resp BP Pulse Ox 97.9 F 95 16 132/74 97 01/16/18 07:07 01/16/18 07:07 01/16/18 07:07 01/16/18 07:07 01/16/18 07:07 General appearance: Present: cooperative, A&O X 3, pleasant, no acute distress, answers questions appropriately - Head Head exam: Present: atraumatic, normal inspection - Neck Neck exam general surgery: Present: supple - Respiratory Respiratory exam: Present: decreased breath sounds, wheezes (mild). Absent: rales, respiratory distress, rhonchi - Cardiovascular Cardiovascular exam: Present: +S1, +S2 - GI/Abdominal GI/Abdominal exam: Present: normal bowel sounds, soft. Absent: rebound, rigid, tenderness - Extremities Exam Extremities exam: Absent: calf tenderness, pedal edema, tenderness - Back Exam Back exam: Absent: CVA tenderness (L), CVA tenderness (R) - Neurological Exam Neurological exam: Present: alert, oriented X3 - Psychiatric Psychiatric exam: Present: normal affect, normal mood - Patient Status Disposition: Transfer SNF Condition: Good Overall status at discharge: patient is back to baseline - Discharge Instructions Follow Up With: Prisca Perez [employer] [Primary Care Provider] - - Diet and Activity Activity: increase activity as tolerated Diet: low salt diet
--- NOTE | 2018-01-16 09:45 | Physician Discharge Referral ---
[facility] Referral Info Transfer To: [facility] Provider in Charge after Transfer: PCP Institutional Level of Care: Skilled - Diagnosis (1) Community acquired pneumonia Status: Acute (2) Acute respiratory failure with hypoxia Status: Acute (3) Leukocytosis Status: Acute (4) Diabetes mellitus Status: Chronic (5) DVT prophylaxis Status: Acute (6) CKD (chronic kidney disease) stage 3, GFR 30-59 ml/min Status: Chronic (7) Chest pain Status: Resolved (8) Discussion about advance care planning held with family member Status: Acute (9) Debility Status: Acute (10) Insomnia Status: Acute (11) Dementia Status: Acute (12) NSTEMI (non-ST elevated myocardial infarction) Status: Resolved (13) Coronary artery disease Status: Chronic - Transfer Medications Prescriptions: Aspirin Enteric Coated [Aspirin EC] 81 mg PO DAILY #30 tablet. Atorvastatin [Lipitor] 20 mg PO HS #30 tablet Home Medications: Allopurinol [Zyloprim 100 MG] 100 mg PO DAILY 01/12/18 [History] Citalopram Hydrobromide [Citalopram HBr] 20 mg PO DAILY 01/12/18 [History] Lisinopril [Zestril] 40 mg PO DAILY 01/12/18 [History] Metoprolol Succinate [Toprol Xl] 50 mg PO DAILY 01/12/18 [History] amLODIPine [Norvasc] 5 mg PO DAILY 01/12/18 [History] Aspirin Enteric Coated [Aspirin EC] 81 mg PO DAILY #30 tablet. 01/16/18 [Rx] Atorvastatin [Lipitor] 20 mg PO HS #30 tablet 01/16/18 [Rx] Ipratropium/Albuterol Neb [Duoneb] 3 ml IH [id number] PRN inhsol 01/16/18 [Rx] Melatonin 3 mg PO HS tablet 01/16/18 [Rx] cephALEXin [Keflex] 500 mg PO BID #4 capsule 01/16/18 [Rx] glipiZIDE [Glucotrol] 5 mg PO BID #0 01/16/18 [Rx] Allergies/Adverse Reactions: 3 Allergy/AdvReac Type Severity Reaction Status Date / Time No Known Allergies Allergy Verified 01/12/18 11:09 - Respiratory Orders Smoking Cessation: Smoking cessation has been advised. For more information, call the [employer] [employer] Tobacco Quit Line at 8-525-KMUI-NOW. CERTIFICATION: I certify that the transfer of the above named patient to an Extended Care Facility is necessary for the continuing treatment of the diagnosis listed. The above information is true and accurate reflection of patient's current condition. Confidential - Redisclosure prohibited without a patient's written consent.
[2018-01-16 10:50] VITALS: BP 121/53
== END 2018-01-16 12:27 | DRG 280 ==
LOC: EMEROO 18:05 → 2ANU 18:05 → SUATTDRO 21:10 → 2ANU 21:27 → ICNU 23:40 → 2ANU 01-12 00:35
PROVIDERS: ADMIT Internal Medicine; ATTEND Family Medicine